=== PATIENT | female | born 1965 | race Caucasian/White ===

== ENCOUNTER 2018-12-01 19:50 | Inpatient (IN) | payer OTHER ==
--- NOTE | 2018-12-01 20:52 | RAD REPORT ---
EXAM DESCRIPTION: CT - Stone Protocol - 12/01/2018 8:42 pm CLINICAL HISTORY: Flank pain. FLANK PAIN COMPARISON: No comparisons TECHNIQUE: Axial images were obtained without oral or IV contrast. Lack of contrast limits solid org an and vascular assessment. The [id number] spans the entirety of the system partially obscuring uppermost abdomen and lung bases. Coronal reformatted images were obtained and reviewed. All CT scans are performed using dose optimization technique as appropriate and may include automated exposure control or mA/KV adjustment according to patient size. FINDINGS: The lower lung quinteros are clear. Cholecystectomy clips. Imaged portions of the liver and spleen show no suspicious findings on non-contrast imaging. The panc reas and adrenal glands are normal. No pathologic lymphadenopathy in the abdomen or pelvis. No urinary tract stones or obstructive uropathy. The right kidney appears enlarged and edematous comp ared to the left. Fat stranding is seen surrounding the inferior aspect of the right kidney. Prominen t 14 mm aortocaval lymph node is present. No bowel obstruction, free air, free fluid or abscess. The appendix is not identified as a discrete s tructure, however, no secondary findings of appendicitis are identified. No significant bony abnormality. Vacuum disc degeneration at L5-S1. IMPRESSION: No urinary tract stones or obstructive uropathy. Enlarged and edematous right kidney is seen with surrounding perinephric inflammation. Although nonsp ecific finding, this can indicate pyelonephritis in the correct clinical setting. Advise clinical cor relation. Cholelithiasis.
[2018-12-01 20:54] LABS: Urine Blood 2+ (NEG); Urine Glucose 2+ (NEG); Urine Protein 3+ (NEG); Urine Specific Gravity 1.025 (1.005-1.030)
[2018-12-01 20:55] LABS: Urine Amorphous Sediment 2+ /HPF (NONE SEEN); Urine Bacteria 20-50 /HPF (<20); Urine Culture Reflex Order NOT NEEDED; Urine Mucus 2+ /HPF (NONE SEEN)
[2018-12-01] MEDS ORDERED: FENTANYL CITR 100 MCG/2 ML ONE (20:55)
[2018-12-01] MEDS ORDERED: NA CHLORIDE 0.9% 1,000 ML ONE (21:22)
[2018-12-01] MEDS ORDERED: CIPROFLOXACIN 400mg IV 400 MG/200 ML BAG IV ONE (21:22)
[2018-12-01 21:48] LABS: Absolute Lymphocytes (CBC) 3.9 K/uL (0.7-4.9); Absolute Monocytes 2.2 K/uL (0.1-1.3); Absolute Neutrophil 10.1 K/uL (1.8-8.0); Basophils % 1.1 % (0-1.3); Eosinophils % 0.6 % (0-4.4); Hematocrit 39.2 % (36.0-45.0); Lymphocytes % 23.8 % (15.3-44.8); MPV 9.5 fL (7.6-11.3); Monocytes % 13.3 % (3.3-12.3)
--- NOTE | 2018-12-01 22:02 | EDPHYS ---
Physician Documentation [facility] Name: Mee Valentine Age: 53 yrs Sex: Female : 1965 Arrival Date: 12/01/2018 Time: 19:58 Bed 18 Private MD: Shara Dockery ED Physician Corbin Jacobo HPI: 12/01 21:13 This 53 yrs old Female presents to ER via Ambulatory with complaints of side snw pain. 21:13 Onset: The symptoms/episode began/occurred acutely. Associated signs and symptoms: snw Pertinent positives: abdominal pain, nausea. The patient has experienced similar episodes in the past, when pt was each time. The patient has been recently seen by a physician: the patient's primary care provider, 2 day(s) ago, with similar presenting complaints, and apparently given a diagnosis of UTI, was given a prescription for antibiotics. 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 - Social history:: Smoking status: Patient uses tobacco products, smokes one pack cigarettes per day. - Ebola Screening: : Patient negative for fever greater than or equal to 101.5 degrees Fahrenheit, and additional compatible Ebola Virus Disease symptoms Patient denies exposure to infectious person Patient denies travel to an Ebola-affected area in the 21 days before illness onset No symptoms or risks identified at this time. ROS: 21:10 Constitutional: Negative for fever, chills, and weight loss, Eyes: Negative for injury, snw pain, redness, and discharge, ENT: Negative for injury, pain, and discharge, Neck: Negative for injury, pain, and swelling, Cardiovascular: Negative for chest pain, palpitations, and edema, Respiratory: Negative for shortness of breath, cough, wheezing, and pleuritic chest pain, Back: Negative for injury and pain, MS/Extremity: Negative for injury and deformity, Skin: Negative for injury, rash, and discoloration, Neuro: Negative for headache, weakness, numbness, tingling, and seizure. 21:10 Psych: Negative for depression, anxiety, suicide ideation, homicidal ideation, and hallucinations. 21:10 Abdomen/GI: Positive for abdominal pain, nausea. Exam: 21:10 Constitutional: This is a well developed, well nourished patient who is awake, alert, snw and in no acute distress. Head/Face: Normocephalic, atraumatic. Eyes: Pupils equal round and reactive to light, extra-ocular motions intact. Lids and lashes normal. Conjunctiva and sclera are non-icteric and not injected. Cornea within normal limits. Periorbital areas with no swelling, redness, or edema. ENT: Nares patent. No nasal discharge, no septal abnormalities noted. Tympanic membranes are normal and external auditory canals are clear. Oropharynx with no redness, swelling, or masses, exudates, or evidence of obstruction, uvula midline. Mucous membranes moist. Neck: Trachea midline, no thyromegaly or masses palpated, and no cervical lymphadenopathy. Supple, full range of motion without nuchal rigidity, or vertebral point tenderness. No Meningismus. Chest/axilla: Normal chest wall appearance and motion. Nontender with no deformity. No lesions are appreciated. Cardiovascular: Regular rate and rhythm with a normal S1 and S2. No gallops, murmurs, or rubs. Normal PMI, no JVD. No pulse deficits. Respiratory: Lungs have equal breath sounds bilaterally, clear to auscultation and percussion. No rales, rhonchi or wheezes noted. No increased work of breathing, no retractions or nasal flaring. Back: No spinal tenderness. No costovertebral tenderness. Full range of motion. 21:10 Skin: Warm, dry with normal turgor. Normal color with no rashes, no lesions, and no evidence of cellulitis. MS/ Extremity: Pulses equal, no cyanosis. Neurovascular intact. Full, normal range of motion. Neuro: Awake and alert, GCS 15, oriented to person, place, time, and situation. Cranial nerves II-XII grossly intact. Motor strength 5/5 in all extremities. Sensory grossly intact. Cerebellar exam normal. Normal gait. 21:10 Abdomen/GI: Inspection: abdomen appears normal, Bowel sounds: normal, Palpation: moderate abdominal tenderness, in the posterior aspect of right lateral abdomen and right upper quadrant. Vital Signs: 20:00 BP 125 / 54; Pulse 100; Resp 20; Temp 97.4; Pulse Ox 95% on R/A; Weight 61.69 kg; aj Height 5 ft. 0 in. (152.40 cm); 21:00 BP 107 / 55; Pulse 89; Resp 19; Temp 98; Pulse Ox 98% ; Pain 10/10; rr5 22:00 BP 100 / 59; Pulse 82; Resp 17; Pulse Ox 98% on R/A; Pain 8/10; rr5 23:00 BP 103 / 53; Pulse 86; Resp 15; Temp 98.1; Pulse Ox 98% on R/A; Pain 7/10; rr5 12/02 00:00 BP 105 / 70; Pulse 95; Resp 17; Temp 99.2; Pulse Ox 99% on R/A; rr5 01:15 BP 104 / 45; Pulse 85; Resp 16; Temp 98.3; Pulse Ox 97% on R/A; Pain 7/10; rr5 12/01 20:00 Body Mass Index 26.56 (61.69 kg, 152.40 cm) aj MDM: 12/01 20:26 Patient medically screened. snw 21:14 Data reviewed: vital signs, nurses notes. Data interpreted: Pulse oximetry: on room air snw is 95 %. Interpretation: acceptable. Counseling: I had a detailed discussion with the patient and/or guardian regarding: the historical points, exam findings, and any diagnostic results supporting the discharge/admit diagnosis, lab results, radiology results, the need for further work-up and treatment in the hospital. Response to treatment: the patient's symptoms have mildly improved after treatment. Physician consultation: Letha Salinas MD was called at 21:14, was contacted at 21:14, regarding admission, to the medical/surgical unit. 21:15 ED course: Pt is diabetic, right kidney edematous on CT, has had outpt therapy for UTI snw x 2 days with no improvement, failed outpt therapy with Cipro. Pt allergic to PCN and Bactrim. Diabetic state with tachycardia at 100bpm. 12/01 20:31 Order name: Urine Culture snw 12/01 20:31 Order name: Urine Microscopic Only; Complete Time: 20:56 snw 12/01 20:40 Order name: Urine Dipstick--Ancillary (enter results); Complete Time: 20:55 cm6 12/01 20:57 Order name: Basic Metabolic Panel; Complete Time: 22:13 snw 12/01 20:57 Order name: CBC with Diff; Complete Time: 21:59 snw 12/01 20:57 Order name: Blood Culture Adult (2) snw 12/01 20:31 Order name: Urine Dipstick-Ancillary (obtain specimen); Complete Time: 20:40 snw 12/01 20:31 Order name: CT Stone Protocol; Complete Time: 20:55 snw 12/01 20:57 Order name: IV Saline Lock; Complete Time: 21:37 snw 12/01 22:38 Order name: Lactate; Complete Time: 00:00 EDMS 12/01 20:57 Order name: Labs collected and sent; Complete Time: 21:37 snw Administered Medications: 20:52 Drug: fentaNYL (PF) 50 mcg Route: IM; Site: right gluteus; rr5 22:00 Follow up: Response: No adverse reaction rr5 21:25 Drug: NS 0.9% 1000 ml Route: IV; Rate: 75 ml/hr; Site: left forearm; rr5 12/02 01:29 Follow up: IV Status: Infusion continued upon admission rr5 01:30 Follow up: IV Status: Infusion continued upon admission; IV Intake: 300ml rr5 12/01 21:25 Drug: Ciprofloxacin 400 mg Volume: 200 ml; Route: IVPB; Infused Over: 60 mins; Site: rr5 left forearm; 22:30 Follow up: Response: No adverse reaction; IV Status: Completed infusion; IV Intake: rr5 200ml 23:00 Drug: UltRAM 50 mg Route: PO; rr5 12/02 00:00 Follow up: Response: No adverse reaction rr5 Disposition: 04:28 Co-signature as Attending Physician, Corbin Jacobo MD. rn Disposition: 12/01/18 22:01 Hospitalization ordered by Letha Salinas for Inpatient Admission. Preliminary diagnosis are Pyelonephritis with failed outpatient therapy, Diabetes mellitus due to underlying condition. - Bed requested for Telemetry/MedSurg (Inpatient). - Status is Inpatient Admission. rr5 - Condition is Stable. - Problem is an ongoing problem. - Symptoms have worsened. UTI on Admission? Yes Signatures: Dispatcher [employer] Juana Gutiérrez RN RN Ginna Eubanks, STOCK BROKER SUPERVISOR-C STOCK BROKER SUPERVISOR-Csnw Corbin Jacobo MD MD rn Garcia, Cindy, RN RN cg Jose L Recinos RN RN rr5 Corrections: (The following items were deleted from the chart) 00:59 12/01 22:01 Hospitalization Ordered by Letha Salinas MD for Inpatient Admission. cg Preliminary diagnosis is Pyelonephritis with failed outpatient therapy; Diabetes mellitus due to underlying condition. Bed requested for Telemetry/MedSurg (Inpatient). Status is Inpatient Admission. Condition is Stable. Problem is an ongoing problem. Symptoms have worsened. UTI on Admission? Yes. [facility] 12/02 01:35 00:59 12/01/2018 22:01 Hospitalization Ordered by Letha Salinas MD for Inpatient rr5 Admission. Preliminary diagnosis is Pyelonephritis with failed outpatient therapy; Diabetes mellitus due to underlying condition. Bed requested for Telemetry/MedSurg (Inpatient). Status is Inpatient Admission. Condition is Stable. Problem is an ongoing problem. Symptoms have worsened. UTI on Admission? Yes.
--- NOTE | 2018-12-01 22:02 | ER ---
Nurse's Notes [facility] Name: Mee Valentine Age: 53 yrs Sex: Female : 1965 Arrival Date: 12/01/2018 Time: 19:58 Bed 18 Private MD: Shara Dockery Diagnosis: Pyelonephritis with failed outpatient therapy;Diabetes mellitus due to underlying condition Presentation: 12/01 19:58 Presenting complaint: Patient states: Right flank pain since Wednesday. Seen at [facility] clinic and told to follow up with GI. Found "large amount of blood in my urine.". Transition of care: patient was not received from another setting of care. Onset of symptoms was November 27, 2018. Risk Assessment: Do you want to hurt yourself or someone else? Patient reports no desire to harm self or others. Initial Sepsis Screen: Does the patient meet any 2 criteria? No. Patient's initial sepsis screen is negative. Does the patient have a suspected source of infection? No. Patient's initial sepsis screen is negative. Care prior to arrival: None. 19:58 Method Of Arrival: Ambulatory 19:58 Acuity: ROSAURA 3 Triage Assessment: 20:00 General: Appears in no apparent distress. comfortable, Behavior is calm, cooperative, aj appropriate for age. Pain: Complains of pain in posterior aspect of right lateral abdomen and anterior aspect of right lateral abdomen. Neuro: Level of Consciousness is awake, alert, obeys commands, Oriented to person, place, time, situation, Appropriate for age. Respiratory: Airway is patent Respiratory effort is even, unlabored, Respiratory pattern is regular, symmetrical. : Reports pain in right flank(s). Derm: Skin is intact, is healthy with good turgor, Skin is pink, warm \\T\\ dry. normal. 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 - Social history:: Smoking status: Patient uses tobacco products, smokes one pack cigarettes per day. - Ebola Screening: : Patient negative for fever greater than or equal to 101.5 degrees Fahrenheit, and additional compatible Ebola Virus Disease symptoms Patient denies exposure to infectious person Patient denies travel to an Ebola-affected area in the 21 days before illness onset No symptoms or risks identified at this time. Screenin:00 Abuse screen: Denies threats or abuse. Denies injuries from another. Nutritional rr5 screening: No deficits noted. Tuberculosis screening: No symptoms or risk factors identified. Fall Risk IV access (20 points). Total Fischer Fall Scale indicates No Risk (0-24 pts). Assessment: 20:10 General: Appears in no apparent distress. uncomfortable, Behavior is calm, cooperative, rr5 appropriate for age. Pain: Complains of pain in right flank Pain radiates to right lower quadrant Pain currently is 8 out of 10 on a pain scale. Quality of pain is described as aching, Pain began gradually, Is intermittent. 20:10 Neuro: Level of Consciousness is awake, alert, obeys commands, Oriented to person, rr5 place, time, situation, Appropriate for age. Cardiovascular: Capillary refill < 3 seconds Patient's skin is warm and dry. Respiratory: Airway is patent Respiratory effort is even, unlabored, Respiratory pattern is regular, symmetrical. GI: Abdomen is flat, Reports lower abdominal pain. : Urine is orange Reports diagnosed with UTI. complaining of right flank pain. EENT: hearing aid at left ear noted. Derm: No signs and/or symptoms reported regarding the dermatologic system. Musculoskeletal: Capillary refill < 3 seconds, Range of motion: intact in all extremities. 21:15 Reassessment: Patient appears in no apparent distress at this time. Patient and/or rr5 family updated on plan of care and expected duration. Pain level reassessed. Patient is alert, oriented x 3, equal unlabored respirations, skin warm/dry/pink. patient agreed advised for admission. 23:00 Reassessment: Patient appears in no apparent distress at this time. complaints of flank rr5 pain, 02/11. dr. guerra informed with order made and carried out. 12/02 00:10 Reassessment: Patient appears in no apparent distress at this time. Patient states rr5 feeling better. Patient states symptoms have improved. 01:15 Reassessment: Patient appears in no apparent distress at this time. Patient is alert, rr5 oriented x 3, equal unlabored respirations, skin warm/dry/pink. as verbalized by the patient i feel better now. pain is on and off around 7/10 but i feel okay. Patient states feeling better. Patient states symptoms have improved. Vital Signs: 12/01 20:00 BP 125 / 54; Pulse 100; Resp 20; Temp 97.4; Pulse Ox 95% on R/A; Weight 61.69 kg; aj Height 5 ft. 0 in. (152.40 cm); 21:00 BP 107 / 55; Pulse 89; Resp 19; Temp 98; Pulse Ox 98% ; Pain 10/10; rr5 22:00 BP 100 / 59; Pulse 82; Resp 17; Pulse Ox 98% on R/A; Pain 8/10; rr5 23:00 BP 103 / 53; Pulse 86; Resp 15; Temp 98.1; Pulse Ox 98% on R/A; Pain 7/10; rr5 12/02 00:00 BP 105 / 70; Pulse 95; Resp 17; Temp 99.2; Pulse Ox 99% on R/A; rr5 01:15 BP 104 / 45; Pulse 85; Resp 16; Temp 98.3; Pulse Ox 97% on R/A; Pain 7/10; rr5 12/01 20:00 Body Mass Index 26.56 (61.69 kg, 152.40 cm) ED Course: 12/01 19:58 Patient arrived in ED. am2 19:58 Shara Dockery is Private Physician. am2 19:59 Triage completed. aj 20:00 Arm band placed on right wrist. Patient placed in an exam room. aj 20:00 Patient has correct armband on for positive identification. Placed in gown. Bed in low rr5 position. Call light in reach. Side rails up X2. Pulse ox on. NIBP on. 20:09 Ginna Parra FNP-C is PHCP. snw 20:09 Corbin Jacobo MD is Attending Physician. snw 20:10 Jose L Recinos RN is Primary Nurse. rr5 20:[address] via wheelchair. vm2 20:44 CT Stone Protocol In Process Unspecified. EDMS 21:10 Inserted saline lock: 20 gauge in left forearm, using aseptic technique. Blood rr5 collected. 21:10 Initial lab(s) drawn, by me, First set of blood cultures drawn by me. rr5 21:25 Second set of blood cultures drawn by me. rr5 21:59 Letha Salinas MD is Hospitalizing Provider. [facility] 12/02 01:18 No provider procedures requiring assistance completed. Patient admitted, IV remains in rr5 place. intact, No redness/swelling at site. Administered Medications: 12/01 20:52 Drug: fentaNYL (PF) 50 mcg Route: IM; Site: right gluteus; rr5 22:00 Follow up: Response: No adverse reaction rr5 21:25 Drug: NS 0.9% 1000 ml Route: IV; Rate: 75 ml/hr; Site: left forearm; rr5 12/02 01:29 Follow up: IV Status: Infusion continued upon admission rr5 01:30 Follow up: IV Status: Infusion continued upon admission; IV Intake: 300ml rr5 12/01 21:25 Drug: Ciprofloxacin 400 mg Volume: 200 ml; Route: IVPB; Infused Over: 60 mins; Site: rr5 left forearm; 22:30 Follow up: Response: No adverse reaction; IV Status: Completed infusion; IV Intake: rr5 200ml 23:00 Drug: UltRAM 50 mg Route: PO; rr5 12/02 00:00 Follow up: Response: No adverse reaction rr5 Intake: 12/01 22:30 IV: 200ml; Total: 200ml. rr5 12/02 01:30 IV: 300ml; Total: 500ml. rr5 Outcome: 12/01 22:01 Decision to Hospitalize by Provider. [facility] 12/02 01:18 Admitted to Tele accompanied by [facility], via wheelchair, room 414, with chart, Report rr5 called to azam Condition: stable Instructed on the need for admit. 01:35 Patient left the ED. rr5 Signatures: Dispatcher [employer] Juana Gutiérrez, RN RN Ginna Eubanks FNP-C FNP-Juana Quinones Victoria vm2 Roque, Raymond, RN RN rr5
[2018-12-01 22:07] LABS: Potassium 3.6 mmol/L (3.5-5.1)
--- NOTE | 2018-12-01 22:52 | P.HP ---
Certification for Inpatient Patient admitted to: Inpatient With expected LOS: >2 Midnights Practitioner: I am a practitioner with admitting privileges, knowledge of patient current condition, hospital course, and medical plan of care. Services: Services provided to patient in accordance with Admission requirements found in Title 42 Section 412.3 of the Code of Federal Regulations Patient History Date of Service: 12/01/18 Reason for admission: acute pyelonephritis History of Present Illness: Ms Valentine is a 53 years old woman with history of DM II, HTN, deafness, who start with right flank pain about about 6 days ago. She went to [facility] and was diagnosed with UTI. She was prescribed Cipro. Despite to take the antibiotics, her flank pain continue without improvement. She denied fever or chills, no nausea or vomiting. In ER she was afebrile, tachycardic 100 bpm, lab work shows leukocytosis 16.4K, UA abnormal, CT abd/pelvis consistent with right pyelonephritis. Allergies Penicillins Allergy (Unverified 07/30/17 21:08) Unknown Sulfa (Sulfonamide Antibi Allergy (Uncoded 07/30/17 21:08) Unknown Home medications list reviewed: Yes - Past Medical/Surgical History -: DM II -: HTN -: deafness Past Surgical History: Reviewed- Non-Contributory - Family History Family History: Reviewed- Non-Contributory - Social History Smoking Status: Current every day smoker Counseled patient to stop smoking for: less than 10 minutes Smoking therapy provided: Yes Patient receptive to therapy: No Alcohol use: No CD- Drugs: No Place of Residence: Home Review of Systems 10-point ROS is otherwise unremarkable Physical Examination - Physical Exam General: Alert, In no apparent distress HEENT: Atraumatic, PERRLA, Mucous membr. moist/pink, EOMI, Sclerae nonicteric Neck: Supple, 2+ carotid pulse no bruit, No LAD, Without JVD or thyroid abnormality Respiratory: Clear to auscultation bilaterally, Normal air movement Cardiovascular: Regular rate/rhythm, Normal S1 S2 Gastrointestinal: Normal bowel sounds, Tenderness (right flank tenderness to palpation) Musculoskeletal: No tenderness Integumentary: No rashes Neurological: Normal speech, Normal strength at 5/5 x4 extr, Normal tone, Normal affect Lymphatics: No axilla or inguinal lymphadenopathy - Studies Laboratory Data (last 24 hrs) 12/01/18 21:10: WBC 16.4 H, Hgb 12.9, Hct 39.2, Plt Count 358 12/01/18 21:10: Sodium 136, Potassium 3.6, BUN 12, Creatinine 0.80, Glucose 202 H Assessment and Plan - Problems (Diagnosis) (1) Acute pyelonephritis Current Visit: Yes Status: Acute (2) Diabetes mellitus Current Visit: Yes Status: Acute Qualifiers: Diabetes mellitus type: type 2 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 Blood and urine culture in process , will order empiric treatment with IV Levaquin. Will adjust antibiotic treatment according cultures report. - Advance Directives Does patient have a Living Will: No Does patient have a Durable POA for Healthcare: No - Code Status/Comfort Care Code Status Assessed: Yes Code Status: Full Code
[2018-12-01] MEDS ORDERED: TRAMADOL HCL 50 MG TAB ONE (23:06)
[2018-12-02] MEDS ORDERED: ONDANSETRON 4 MG/2 ML VIAL IV PRN (03:00)
[2018-12-02] MEDS: TRAMADOL HCL 50 MG TAB PO PRN ×3 (04:13→20:39)
[2018-12-02] MEDS: Levofloxacin500mg IV 500 MG/100 ML BAG IV SCH (04:13)
[2018-12-02] MEDS: NA CHLORIDE 0.9% 1,000 ML IV SCH ×3 (04:14→17:21)
[2018-12-02] MEDS: INSULIN -REGULAR HUMAN 50 UNIT/0.5 ML ML SQ SCH ×4 (07:30→21:00)
[2018-12-02] MEDS ORDERED: POTASSIUM CL SA 10 MEQ TAB PO ONE (09:00)
--- NOTE | 2018-12-02 13:21 | P.PN ---
Subjective Date of Service: 12/02/18 Chief Complaint: acute pyelonephritis Subjective: Improving (Patient seen and examined chart reviewed and case discussed with RN. Patient states she feels better. Still having some flank pain.) Review of Systems 10-point ROS is otherwise unremarkable Genitourinary: As per HPI Physical Examination - Vital Signs Temperature: 97.3 F Blood Pressure: 111/50 Pulse: 84 Respirations: 24 Pulse Ox (%): 94 - Physical Exam General: Alert, Oriented x3, Mild distress, Other (Ill-appearing female) HEENT: Atraumatic, PERRLA, EOMI Neck: Supple, JVD not distended Respiratory: Clear to auscultation bilaterally, Normal air movement Cardiovascular: No edema, Normal pulses, Regular rate/rhythm, Normal S1 S2 Gastrointestinal: Normal bowel sounds, Soft and benign, Non-distended, No tenderness Musculoskeletal: No clubbing, No tenderness Integumentary: No rashes, No erythema Neurological: Normal speech, Normal strength at 5/5 x4 extr, Normal tone, Normal affect - Studies Laboratory Data (last 24 hrs) 12/01/18 21:10: WBC 16.4 H, Hgb 12.9, Hct 39.2, Plt Count 358 12/01/18 21:10: Sodium 136, Potassium 3.6, BUN 12, Creatinine 0.80, Glucose 202 H Imagings Data: IMPRESSION: No urinary tract stones or obstructive uropathy. Enlarged and edematous right kidney is seen with surrounding perinephric inflammation. Although nonspecific finding, this can indicate pyelonephritis in the correct clinical setting. Advise clinical correlation. Cholelithiasis. 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 Patient is still symptomatic with flank pain as high white count. Resume home medications as appropriate Monitor for signs of sepsis DVT prophylaxis with Lovenox Continue IV fluid hydration Discharge Plan: Home Plan to discharge in: 48 Hours - Code Status/Comfort Care Code Status Assessed: Yes
[2018-12-02] MEDS ORDERED: D50W 25 GM/50 ML SYRINGE IV PRN (13:28)
[2018-12-02] MEDS ORDERED: GLUCAGON 1 MG/VIAL IM PRN (13:28)
[2018-12-02] MEDS: HYDROCODONE/APAP 7.5/325 MG TAB PO PRN ×2 (16:20→21:58)
[2018-12-02] MEDS: glipiZIDE 5 MG TAB PO SCH (17:23)
[2018-12-02] MEDS: ATORVASTATIN 40 MG TAB PO SCH (20:39)
[2018-12-02] MEDS: DICYCLOMINE HCL 10 MG CAP PO PRN (20:40)
[2018-12-03] MEDS: Levofloxacin500mg IV 500 MG/100 ML BAG IV SCH (04:43)
[2018-12-03] MEDS: NA CHLORIDE 0.9% 1,000 ML IV SCH ×3 (04:44→16:12)
[2018-12-03] MEDS: HYDROCODONE/APAP 7.5/325 MG TAB PO PRN ×4 (04:44→23:57)
[2018-12-03] MEDS: INSULIN -REGULAR HUMAN 50 UNIT/0.5 ML ML SQ SCH ×4 (07:30→21:00)
[2018-12-03] MEDS: LISINOPRIL 5 MG TAB PO SCH (09:14)
[2018-12-03] MEDS: glipiZIDE 5 MG TAB PO SCH ×2 (09:14→16:12)
[2018-12-03 10:55] LABS: Absolute Monocytes 1.2 K/uL (0.1-1.3); Absolute Neutrophil 11.1 K/uL (1.8-8.0); Basophils % 1.1 % (0-1.3); Eosinophils % 1.4 % (0-4.4); Hematocrit 35.2 % (36.0-45.0); Lymphocytes % 19.3 % (15.3-44.8); MPV 8.9 fL (7.6-11.3); Monocytes % 7.4 % (3.3-12.3); RBC Red Blood Cell Count 3.89 M/uL (3.86-4.86)
--- NOTE | 2018-12-03 12:44 | P.PN ---
Subjective Date of Service: 12/03/18 Chief Complaint: acute pyelonephritis Subjective: Improving Patient seen and examined chart reviewed and case discussed with RN. Patient reports improvement in her pain however still not resolved. Patient counseled to stop smoking however she is adamant About going outside to smoke Review of Systems 10-point ROS is otherwise unremarkable Gastrointestinal: As per HPI Physical Examination - Vital Signs Temperature: 96.9 F Blood Pressure: 112/60 Pulse: 78 Respirations: 18 Pulse Ox (%): 96 - Physical Exam General: Alert, In no apparent distress, Oriented x3 HEENT: Atraumatic, PERRLA, EOMI Neck: Supple, JVD not distended Respiratory: Clear to auscultation bilaterally, Normal air movement Cardiovascular: No edema, Normal pulses, Regular rate/rhythm, Normal S1 S2 Gastrointestinal: Normal bowel sounds, Soft and benign, Non-distended, No rebound, No guarding, Tenderness Musculoskeletal: No tenderness Integumentary: No rashes Neurological: Normal speech, Normal strength at 5/5 x4 extr, Normal tone, Normal affect - Studies Laboratory Tests 12/01/18 12/01/18 12/01/18 20:10 20:40 21:10 WBC RBC Hgb Hct MCV MCH MCHC RDW Plt Count MPV Neutrophils % Lymphocytes % Monocytes % Eosinophils % Basophils % Absolute Neutrophils Absolute Lymphocytes Absolute Monocytes Absolute Eosinophils Absolute Basophils Sodium 136 Potassium 3.6 Chloride 105 Carbon Dioxide 24 BUN 12 Creatinine 0.80 Estimated GFR 76 L Glucose 202 H Lactic Acid Calcium 9.1 Urine pH 5.0 Ur Specific [place] 1.025 Urine Ketones Trace Urine Blood 2+ H Urine Nitrite Negative Ur Leukocyte Esterase Trace H Urine RBC 10-20 H Urine WBC 20-50 H Ur Squamous Epith Cells <5 Amorphous Sediment 2+ H Urine Bacteria 20-50 H Urine Mucus 2+ Urine Culture Reflexed Not needed Urine Glucose 2+ H Urine Total Protein 3+ H 12/01/18 12/01/18 21:10 23:20 WBC 16.4 H RBC 4.30 Hgb 12.9 Hct 39.2 MCV 91.1 MCH 30.1 MCHC 33.0 RDW 13.6 Plt Count 358 MPV 9.5 Neutrophils % 61.2 Lymphocytes % 23.8 Monocytes % 13.3 H Eosinophils % 0.6 Basophils % 1.1 Absolute Neutrophils 10.1 H Absolute Lymphocytes 3.9 Absolute Monocytes 2.2 H Absolute Eosinophils 0.1 Absolute Basophils 0.2 Sodium Potassium Chloride Carbon Dioxide BUN Creatinine Estimated GFR Glucose Lactic Acid 1.5 Calcium Urine pH Ur Specific [place] Urine Ketones Urine Blood Urine Nitrite Ur Leukocyte Esterase Urine RBC Urine WBC Ur Squamous Epith Cells Amorphous Sediment Urine Bacteria Urine Mucus Urine Culture Reflexed Urine Glucose Urine Total Protein Microbiology Data (last 24 hrs): Microbiology 12/01/18 20:10 Clean Catch Urine [place] Count - Preliminary <10,000 CFU/ML. 12/01/18 20:10 Clean Catch Urine - Preliminary No growth. 12/01/18 21:25 Blood - Blood Aerobic Blood Culture - Preliminary No growth in 24 hours. 12/01/18 21:25 Blood - Blood Anaerobic Blood Culture - Preliminary No growth in 24 hours. 12/01/18 21:10 Blood - Blood Aerobic Blood Culture - Preliminary No growth in 24 hours. 12/01/18 21:10 Blood - Blood Anaerobic Blood Culture - Preliminary No growth in 24 hours. Medications List Reviewed: Yes Assessment And Plan - Current Problems (Diagnosis) (1) Acute pyelonephritis Current Visit: Yes Status: Acute (2) Diabetes mellitus Current Visit: Yes Status: Acute Qualifiers: Diabetes mellitus type: type 2 Diabetes mellitus residential insulin use: without computer terminal operator use Diabetes mellitus complication status: with hyperglycemia Qualified Code(s): E11.65 - Type 2 diabetes mellitus with hyperglycemia (3) HTN (hypertension) Current Visit: Yes Status: Acute Qualifiers: Hypertension type: essential hypertension Qualified Code(s): I10 - Essential (primary) hypertension (4) Leukocytosis Current Visit: Yes Status: Acute Qualifiers: Leukocytosis type: other Qualified Code(s): D72.828 - Other elevated white blood cell count (5) Nicotine dependence with current use Current Visit: Yes Status: Acute - Plan CBC still shows elevated white blood cell count. Patient still has abdominal tenderness and nausea. Continue IV antibiotics and follow up on cultures. Negative to date. CT scan does not show any obstruction or stones. Right perinephric stranding consistent with pyelonephritis Monitor for signs of sepsis DVT prophylaxis with Lovenox Continue IV fluid hydration Discharge Plan: Home Plan to discharge in: 24 Hours
[2018-12-03] MEDS: ATORVASTATIN 40 MG TAB PO SCH (21:08)
[2018-12-03] MEDS: TRAMADOL HCL 50 MG TAB PO PRN (21:08)
[2018-12-03] MEDS: DICYCLOMINE HCL 10 MG CAP PO PRN (21:08)
[2018-12-04] MEDS: Levofloxacin500mg IV 500 MG/100 ML BAG IV SCH (04:25)
[2018-12-04] MEDS: NA CHLORIDE 0.9% 1,000 ML IV SCH ×2 (04:25→15:00)
[2018-12-04 05:32] LABS: Absolute Lymphocytes (CBC) 3.9 K/uL (0.7-4.9); Absolute Monocytes 1.2 K/uL (0.1-1.3); Absolute Neutrophil 8.6 K/uL (1.8-8.0); Basophils % 0.6 % (0-1.3); Eosinophils % 2.4 % (0-4.4); Hematocrit 32.6 % (36.0-45.0); Lymphocytes % 27.5 % (15.3-44.8); Monocytes % 8.2 % (3.3-12.3); RBC Red Blood Cell Count 3.56 M/uL (3.86-4.86)
[2018-12-04 05:43] LABS: BUN Blood Urea Nitrogen 10 mg/dL (7-18); Bicarbonate 26 mmol/L (21-32); Glucose Level 125 mg/dL (74-106); Sodium Level 141 mmol/L (136-145)
[2018-12-04] MEDS: INSULIN -REGULAR HUMAN 50 UNIT/0.5 ML ML SQ SCH ×4 (07:30→20:28)
[2018-12-04] MEDS: LISINOPRIL 5 MG TAB PO SCH (09:16)
[2018-12-04] MEDS: glipiZIDE 5 MG TAB PO SCH ×2 (09:16→17:25)
[2018-12-04] MEDS: HYDROCODONE/APAP 7.5/325 MG TAB PO PRN ×2 (10:41→20:08)
--- NOTE | 2018-12-04 13:32 | P.PN ---
Subjective Date of Service: 12/04/18 Chief Complaint: acute pyelonephritis Patient seen and examined chart reviewed and case discussed with RN. New acute events overnight. Patient still reports with the right flank pain Review of Systems 10-point ROS is otherwise unremarkable Physical Examination - Vital Signs Temperature: 97.2 F Blood Pressure: 127/56 Pulse: 79 Respirations: 16 Pulse Ox (%): 98 - Physical Exam General: Alert, In no apparent distress, Oriented x3 HEENT: Atraumatic, PERRLA, EOMI Neck: Supple, JVD not distended Respiratory: Clear to auscultation bilaterally, Normal air movement Cardiovascular: No edema, Normal pulses, Regular rate/rhythm, Normal S1 S2 Gastrointestinal: Normal bowel sounds, Soft and benign, Non-distended, No tenderness, Other (Right flank tenderness) Musculoskeletal: No erythema Integumentary: No rashes Neurological: Normal speech, Normal tone, Normal affect - Studies Laboratory Last Values WBC 14.0 K/uL (4.3-10.9) H 12/04/18 05:00 RBC 3.56 M/uL (3.86-4.86) L 12/04/18 05:00 Hgb 10.9 g/dL (12.0-15.0) L 12/04/18 05:00 Hct 32.6 % (36.0-45.0) L 12/04/18 05:00 MCV 91.5 fL (80-100) 12/04/18 05:00 MCH 30.6 pg (27.0-35.0) 12/04/18 05:00 MCHC 33.4 g/dL (32.0-36.0) 12/04/18 05:00 RDW 13.4 % (12.1-15.2) 12/04/18 05:00 Plt Count 402 K/uL (152-406) 12/04/18 05:00 MPV 9.0 fL (7.6-11.3) 12/04/18 05:00 Neutrophils % 61.3 % (41.7-73.7) 12/04/18 05:00 Lymphocytes % 27.5 % (15.3-44.8) 12/04/18 05:00 Monocytes % 8.2 % (3.3-12.3) 12/04/18 05:00 Eosinophils % 2.4 % (0-4.4) 12/04/18 05:00 Basophils % 0.6 % (0-1.3) 12/04/18 05:00 Absolute Neutrophils 8.6 K/uL (1.8-8.0) H 12/04/18 05:00 Absolute Lymphocytes 3.9 K/uL (0.7-4.9) 12/04/18 05:00 Absolute Monocytes 1.2 K/uL (0.1-1.3) 12/04/18 05:00 Absolute Eosinophils 0.3 K/uL (0-0.5) 12/04/18 05:00 Absolute Basophils 0.1 K/uL (0-0.5) 12/04/18 05:00 Sodium 141 mmol/L (136-145) 12/04/18 05:00 Potassium 4.0 mmol/L (3.5-5.1) 12/04/18 05:00 Chloride 110 mmol/L (98-107) H 12/04/18 05:00 Carbon Dioxide 26 mmol/L (21-32) 12/04/18 05:00 BUN 10 mg/dL (7-18) 12/04/18 05:00 Creatinine 0.53 mg/dL (0.55-1.3) L 12/04/18 05:00 Estimated GFR > 90 mL/min (=/>90) 12/04/18 05:00 Glucose 125 mg/dL (74-106) H 12/04/18 05:00 POC Glucose 180 mg/dl (65-120) H 12/04/18 11:46 Lactic Acid 1.5 mmol/L (0.4-2.0) 12/01/18 23:20 Calcium 8.7 mg/dL (8.5-10.1) 12/04/18 05:00 Urine pH 5.0 (5.0-7.0) 12/01/18 20:40 Ur Specific [place] 1.025 (1.005-1.030) 12/01/18 20:40 Urine Ketones Trace (NEG) 12/01/18 20:40 Urine Blood 2+ (NEG) H 12/01/18 20:40 Urine Nitrite Negative (NEG) 12/01/18 20:40 Ur Leukocyte Esterase Trace (NEG) H 12/01/18 20:40 Urine RBC 10-20 /HPF (NONE SEEN) H 12/01/18 20:10 Urine WBC 20-50 /HPF (<5) H 12/01/18 20:10 Ur Squamous Epith Cells <5 /HPF (NONE SEEN) 12/01/18 20:10 Amorphous Sediment 2+ /HPF (NONE SEEN) H 12/01/18 20:10 Urine Bacteria 20-50 /HPF (<20) H 12/01/18 20:10 Urine Mucus 2+ /HPF (NONE SEEN) 12/01/18 20:10 Urine Culture Reflexed Not needed 12/01/18 20:10 Urine Glucose 2+ (NEG) H 12/01/18 20:40 Urine Total Protein 3+ (NEG) H 12/01/18 20:40 Microbiology Data (last 24 hrs): 12/01/18 20:10 Clean Catch Urine [place] Count - Final 12/01/18 20:10 Clean Catch Urine - Final No growth. Medications List Reviewed: Yes Assessment And Plan - Current Problems (Diagnosis) (1) Acute pyelonephritis Current Visit: Yes Status: Acute (2) Diabetes mellitus Current Visit: Yes Status: Acute Qualifiers: Diabetes mellitus type: type 2 Diabetes mellitus chcf insulin use: without weight analyst use Diabetes mellitus complication status: with hyperglycemia Qualified Code(s): E11.65 - Type 2 diabetes mellitus with hyperglycemia (3) HTN (hypertension) Current Visit: Yes Status: Acute Qualifiers: Hypertension type: essential hypertension Qualified Code(s): I10 - Essential (primary) hypertension (4) Leukocytosis Current Visit: Yes Status: Acute Qualifiers: Leukocytosis type: other Qualified Code(s): D72.828 - Other elevated white blood cell count (5) Nicotine dependence with current use Current Visit: Yes Status: Acute - Plan CBC still shows elevated white blood cell count. Patient still has flank tenderness. Continue IV antibiotics and follow up on cultures. Negative to date. Patient was on antibiotics at home therefore culture has low yield. CT scan does not show any obstruction or stones. Right perinephric stranding consistent with pyelonephritis Monitor for signs of sepsis DVT prophylaxis with Lovenox Continue IV fluid hydration. Likely Dc in a.m.
[2018-12-04] MEDS: ATORVASTATIN 40 MG TAB PO SCH (20:08)
[2018-12-05] MEDS: NA CHLORIDE 0.9% 1,000 ML IV SCH ×3 (00:45→21:00)
[2018-12-05 04:44] LABS: Absolute Lymphocytes (CBC) 4.1 K/uL (0.7-4.9); Absolute Neutrophil 9.6 K/uL (1.8-8.0); Eosinophils % 1.3 % (0-4.4); Hematocrit 32.1 % (36.0-45.0); Lymphocytes % 27.2 % (15.3-44.8); MPV 9.1 fL (7.6-11.3); Monocytes % 6.8 % (3.3-12.3); RBC Red Blood Cell Count 3.53 M/uL (3.86-4.86)
[2018-12-05 04:45] LABS: BUN Blood Urea Nitrogen 8 mg/dL (7-18); Bicarbonate 25 mmol/L (21-32); Glucose Level 123 mg/dL (74-106); Potassium 3.9 mmol/L (3.5-5.1); Sodium Level 142 mmol/L (136-145)
[2018-12-05] MEDS: Levofloxacin500mg IV 500 MG/100 ML BAG IV SCH (04:55)
[2018-12-05] MEDS: INSULIN -REGULAR HUMAN 50 UNIT/0.5 ML ML SQ SCH ×4 (07:30→21:00)
[2018-12-05] MEDS: LISINOPRIL 5 MG TAB PO SCH (08:07)
[2018-12-05] MEDS: glipiZIDE 5 MG TAB PO SCH ×2 (08:08→16:32)
[2018-12-05] MEDS ORDERED: POTASSIUM 25 MEQ EFFERV TAB PO ONE (09:00)
[2018-12-05] MEDS ORDERED: CEFEPIME 2 GM in NA CHLORIDE 0.9% 100 ML IV SCH (09:09)
[2018-12-05] MEDS ORDERED: Meropenem 1,000 MG in NA CHLORIDE 0.9% 100 ML IV ONE (11:00)
--- NOTE | 2018-12-05 12:52 | P.PN ---
Subjective Date of Service: 12/05/18 Chief Complaint: acute pyelonephritis Subjective: Worsening Patient seen and examined chart reviewed and case discussed with RN and Dr. Mosley. No acute events overnight. Patient still reports pain in the right flank Review of Systems 10-point ROS is otherwise unremarkable General: Fever Physical Examination - Vital Signs Temperature: 97.1 F Blood Pressure: 137/64 Pulse: 81 Respirations: 18 Pulse Ox (%): 96 - Physical Exam General: Alert, In no apparent distress, Oriented x3, Mild distress, Other (Ill- appearing female) HEENT: Atraumatic, PERRLA, EOMI Neck: Supple, JVD not distended Respiratory: Clear to auscultation bilaterally, Normal air movement Cardiovascular: No edema, Normal pulses, Regular rate/rhythm, Normal S1 S2 Gastrointestinal: Normal bowel sounds, Soft and benign, Non-distended, Tenderness (Right flank tenderness) Musculoskeletal: No tenderness Integumentary: No rashes Neurological: Normal speech, Normal tone, Normal affect - Studies Laboratory Last Values WBC 15.1 K/uL (4.3-10.9) H 12/05/18 04:07 RBC 3.53 M/uL (3.86-4.86) L 12/05/18 04:07 Hgb 10.9 g/dL (12.0-15.0) L 12/05/18 04:07 Hct 32.1 % (36.0-45.0) L 12/05/18 04:07 MCV 90.8 fL (80-100) 12/05/18 04:07 MCH 30.8 pg (27.0-35.0) 12/05/18 04:07 MCHC 33.9 g/dL (32.0-36.0) 12/05/18 04:07 RDW 13.5 % (12.1-15.2) 12/05/18 04:07 Plt Count 459 K/uL (152-406) H 12/05/18 04:07 MPV 9.1 fL (7.6-11.3) 12/05/18 04:07 Neutrophils % 63.7 % (41.7-73.7) 12/05/18 04:07 Lymphocytes % 27.2 % (15.3-44.8) 12/05/18 04:07 Monocytes % 6.8 % (3.3-12.3) 12/05/18 04:07 Eosinophils % 1.3 % (0-4.4) 12/05/18 04:07 Basophils % 1.0 % (0-1.3) 12/05/18 04:07 Absolute Neutrophils 9.6 K/uL (1.8-8.0) H 12/05/18 04:07 Absolute Lymphocytes 4.1 K/uL (0.7-4.9) 12/05/18 04:07 Absolute Monocytes 1.0 K/uL (0.1-1.3) 12/05/18 04:07 Absolute Eosinophils 0.2 K/uL (0-0.5) 12/05/18 04:07 Absolute Basophils 0.2 K/uL (0-0.5) 12/05/18 04:07 Sodium 142 mmol/L (136-145) 12/05/18 04:07 Potassium 3.9 mmol/L (3.5-5.1) 12/05/18 04:07 Chloride 110 mmol/L (98-107) H 12/05/18 04:07 Carbon Dioxide 25 mmol/L (21-32) 12/05/18 04:07 BUN 8 mg/dL (7-18) 12/05/18 04:07 Creatinine 0.48 mg/dL (0.55-1.3) L 12/05/18 04:07 Estimated GFR > 90 mL/min (=/>90) 12/05/18 04:07 Glucose 123 mg/dL (74-106) H 12/05/18 04:07 POC Glucose 169 mg/dl (65-120) H 12/05/18 11:27 Lactic Acid 1.2 mmol/L (0.4-2.0) 12/05/18 09:30 Calcium 8.6 mg/dL (8.5-10.1) 12/05/18 04:07 Urine pH 5.0 (5.0-7.0) 12/01/18 20:40 Ur Specific [place] 1.025 (1.005-1.030) 12/01/18 20:40 Urine Ketones Trace (NEG) 12/01/18 20:40 Urine Blood 2+ (NEG) H 12/01/18 20:40 Urine Nitrite Negative (NEG) 12/01/18 20:40 Ur Leukocyte Esterase Trace (NEG) H 12/01/18 20:40 Urine RBC 10-20 /HPF (NONE SEEN) H 12/01/18 20:10 Urine WBC 20-50 /HPF (<5) H 12/01/18 20:10 Ur Squamous Epith Cells <5 /HPF (NONE SEEN) 12/01/18 20:10 Amorphous Sediment 2+ /HPF (NONE SEEN) H 12/01/18 20:10 Urine Bacteria 20-50 /HPF (<20) H 12/01/18 20:10 Urine Mucus 2+ /HPF (NONE SEEN) 12/01/18 20:10 Urine Culture Reflexed Not needed 12/01/18 20:10 Urine Glucose 2+ (NEG) H 12/01/18 20:40 Urine Total Protein 3+ (NEG) H 12/01/18 20:40 Microbiology Data (last 24 hrs): Microbiology 12/01/18 20:10 Clean Catch Urine [place] Count - Final 12/01/18 20:10 Clean Catch Urine - Final No growth. 12/01/18 21:25 Blood - Blood Aerobic Blood Culture - Preliminary No growth in 24 hours. 12/01/18 21:25 Blood - Blood Anaerobic Blood Culture - Preliminary No growth in 24 hours. 12/01/18 21:10 Blood - Blood Aerobic Blood Culture - Preliminary No growth in 24 hours. 12/01/18 21:10 Blood - Blood Anaerobic Blood Culture - Preliminary No growth in 24 hours. Medications List Reviewed: Yes Assessment And Plan - Current Problems (Diagnosis) (1) Acute pyelonephritis Current Visit: Yes Status: Acute (2) Diabetes mellitus Current Visit: Yes Status: Acute Qualifiers: Diabetes mellitus type: type 2 Diabetes mellitus mcfp insulin use: without ferry terminal supervisor use Diabetes mellitus complication status: with hyperglycemia Qualified Code(s): E11.65 - Type 2 diabetes mellitus with hyperglycemia (3) HTN (hypertension) Current Visit: Yes Status: Acute Qualifiers: Hypertension type: essential hypertension Qualified Code(s): I10 - Essential (primary) hypertension (4) Leukocytosis Current Visit: Yes Status: Acute Qualifiers: Leukocytosis type: other Qualified Code(s): D72.828 - Other elevated white blood cell count (5) Nicotine dependence with current use Current Visit: Yes Status: Acute - Plan white blood cell count trending up. Patient still has flank tenderness. Adjust IV antibiotics to meropenem and discontinue Levaquin and follow up on cultures. Negative to date. Patient was on antibiotics at home therefore culture has low yield. CT scan does not show any obstruction or stones. Right perinephric stranding consistent with pyelonephritis Monitor for signs of sepsis DVT prophylaxis with Lovenox Continue IV fluid hydration. Consult urology.
[2018-12-05] MEDS: Meropenem 1,000 MG in NA CHLORIDE 0.9% 100 ML IV SCH (17:05)
--- NOTE | 2018-12-05 18:36 | CON ---
History Of Present Illness: This 53-year-old lady with history of deafness, diabetes type 2, hypertension, started to have right flank pain about 6 days prior to admission. She has been admitted now for about 4 days. She went to the [facility] and was diagnosed with a UTI and prescribed Cipro, but despite taking antibiotics, she had no improvement, so she came to the emergency room and she was admitted. She was diagnosed with right pyelonephritis by CT scan and history and physical exam showed the right kidney appears enlarged and edematous compared to the left. Fat stranding is seen surrounding the inferior aspect of the right kidney. Prominent 4 mm aortocaval lymph node is present. No urinary stones or obstructive uropathy. These findings were consistent with right pyelonephritis along with the clinical picture and laboratories and elevated white count. However, since been in the hospital, she had been on cephalosporins, antibiotics without much improvement in her white count. Her white count has pretty much been stable since she has been admitted. When she was admitted, it was 16.4, then it went to 15.7, then 14.0 and then 15.1 today, so I was consulted. Allergies: PENICILLIN, UNKNOWN. SULFA, UNKNOWN. Medications: Reviewed in the chart. Past Surgical History: Noncontributory. Family History: Noncontributory. Social History: Everyday smoker. Review of Systems: A 10-point review of systems otherwise negative. Physical Examination: Vital Signs: Afebrile, stable. HEENT: Atraumatic and normocephalic. Neck: Supple. Respiratory: Clear. Cardiovascular: S1, S2. Gastrointestinal: Normal bowel sounds. Musculoskeletal: No tenderness. Skin: No rashes. Neurological: Alert and oriented. Laboratory Studies: Recent white count was 15.1, first it was 16.4 on admission. H and H are 10.9 and 32, platelet count 459. CT scan as mentioned above. Assessment: Acute right pyelonephritis. Plan is to switch her to meropenem IV and see how she responds. She may have an ESBL. The patient also has history of diabetes mellitus and hypertension, she will be treated medically for those. She has no stones or any obstructive uropathy that needs any further intervention. Her urine culture did not grow anything due to the fact that I think that she was on oral antibiotic, so we will treat her empirically and see how she does. Thank you very much. ROYAL/DICK Voice ID: [id number] Report ID: [id number] HALI
[2018-12-05] MEDS: ATORVASTATIN 40 MG TAB PO SCH (21:12)
[2018-12-06] MEDS: Meropenem 1,000 MG in NA CHLORIDE 0.9% 100 ML IV SCH ×3 (01:31→16:11)
[2018-12-06] MEDS: NA CHLORIDE 0.9% 1,000 ML IV SCH ×2 (04:19→16:16)
[2018-12-06 05:24] LABS: BUN Blood Urea Nitrogen 9 mg/dL (7-18); Bicarbonate 26 mmol/L (21-32); Glucose Level 113 mg/dL (74-106); Magnesium 2.2 mg/dL (1.8-2.4); Potassium 3.9 mmol/L (3.5-5.1); Sodium Level 145 mmol/L (136-145)
[2018-12-06] MEDS: INSULIN -REGULAR HUMAN 50 UNIT/0.5 ML ML SQ SCH ×4 (07:30→20:57)
[2018-12-06 08:07] LABS: Absolute Lymphocytes (CBC) 3.6 K/uL (0.7-4.9); Absolute Monocytes 0.9 K/uL (0.1-1.3); Basophils % 0.9 % (0-1.3); Eosinophils % 1.1 % (0-4.4); Hematocrit 33.7 % (36.0-45.0); Lymphocytes % 26.2 % (15.3-44.8); MPV 8.8 fL (7.6-11.3); Monocytes % 6.4 % (3.3-12.3); RBC Red Blood Cell Count 3.72 M/uL (3.86-4.86)
[2018-12-06] MEDS: glipiZIDE 5 MG TAB PO SCH ×2 (08:40→16:11)
[2018-12-06] MEDS: LISINOPRIL 5 MG TAB PO SCH (08:40)
[2018-12-06] MEDS ORDERED: POTASSIUM 25 MEQ EFFERV TAB PO ONE (09:00)
--- NOTE | 2018-12-06 13:37 | PN ---
Subjective: The patient feels much better today than yesterday since she began on meropenem. White count is starting to decrease, is now 13,700 down from 15,100 yesterday. Assessment: Acute pyelonephritis. Plan: Plan is to do a PICC line placement. Do IV meropenem at home for another 14 days. ROYAL/DICK Voice ID: [id number] Report ID: [id number]
--- NOTE | 2018-12-06 18:47 | P.PN ---
Subjective Date of Service: 12/06/18 Chief Complaint: acute pyelonephritis Subjective: No C/O voiced, Improving Patient seen and examined at bedside. No family at bedside. Chart reviewed and case discussed with nursing staff. Reports feeling great, flank pain has almost resolved completely. No acute events noted overnight and no complaints noted this morning. Review of Systems 10-point ROS is otherwise unremarkable Physical Examination - Vital Signs Temperature: 97.8 F Blood Pressure: 132/68 Pulse: 78 Respirations: 18 Pulse Ox (%): 97 - Physical Exam General: Alert, In no apparent distress, Oriented x3 HEENT: Atraumatic, PERRLA, EOMI Neck: Supple, JVD not distended Respiratory: Clear to auscultation bilaterally, Normal air movement Cardiovascular: Regular rate/rhythm, Normal S1 S2 Gastrointestinal: Normal bowel sounds, No tenderness Musculoskeletal: No tenderness Integumentary: No rashes Neurological: Normal speech, Normal tone, Normal affect Lymphatics: No axilla or inguinal lymphadenopathy - Studies Medications List Reviewed: Yes Assessment And Plan - Plan Assessment And Plan - Current Problems (Diagnosis) (1) Acute pyelonephritis Current Visit: Yes Status: Acute (2) Diabetes mellitus Current Visit: Yes Status: Acute Qualifiers: Diabetes mellitus type: type 2 Diabetes mellitus skilled nursing insulin use: without intermodal owner operator truck driver use Diabetes mellitus complication status: with hyperglycemia Qualified Code(s): E11.65 - Type 2 diabetes mellitus with hyperglycemia (3) HTN (hypertension) Current Visit: Yes Status: Acute Qualifiers: Hypertension type: essential hypertension Qualified Code(s): I10 - Essential (primary) hypertension (4) Leukocytosis Current Visit: Yes Status: Acute Qualifiers: Leukocytosis type: other Qualified Code(s): D72.828 - Other elevated white blood cell count (5) Nicotine dependence with current use Current Visit: Yes Status: Acute - Plan white blood cell count improved after meropenem. The patient has flank tenderness has resolved. Continue meropenem and follow up on cultures. Negative to date. Patient was on antibiotics at home therefore culture has low yield. CT scan does not show any obstruction or stones. Right perinephric stranding consistent with pyelonephritis Monitor for signs of sepsis Continue IV fluid hydration. Consult urology, recommendations appreciated. DVT prophylaxis: Lovenox GI prophylaxis: None Diet: Diabetic Disposition: Pending PICC line placement at home IV antibiotics set up. Social work on board. Possible discharge home in the next 24-48 hr with IV antibiotics set up at home.
[2018-12-06] MEDS: ATORVASTATIN 40 MG TAB PO SCH (20:17)
[2018-12-07] MEDS: Meropenem 1,000 MG in NA CHLORIDE 0.9% 100 ML IV SCH ×3 (00:24→16:35)
[2018-12-07] MEDS: ACETAMINOPHEN 500 MG TAB PO PRN (04:03)
[2018-12-07] MEDS: NA CHLORIDE 0.9% 1,000 ML IV SCH ×3 (05:33→21:33)
[2018-12-07 06:26] LABS: BUN Blood Urea Nitrogen 13 mg/dL (7-18); Bicarbonate 24 mmol/L (21-32); Glucose Level 145 mg/dL (74-106); Potassium 3.9 mmol/L (3.5-5.1); Sodium Level 143 mmol/L (136-145)
[2018-12-07] MEDS: INSULIN -REGULAR HUMAN 50 UNIT/0.5 ML ML SQ SCH ×4 (07:30→21:00)
[2018-12-07] MEDS: LISINOPRIL 5 MG TAB PO SCH (08:55)
[2018-12-07] MEDS: glipiZIDE 5 MG TAB PO SCH ×2 (08:55→16:36)
[2018-12-07] MEDS ORDERED: POTASSIUM 25 MEQ EFFERV TAB PO ONE (09:00)
--- NOTE | 2018-12-07 15:41 | P.PN ---
Subjective Date of Service: 12/07/18 Chief Complaint: acute pyelonephritis Patient seen and examined at bedside. No family at bedside. Chart reviewed and case discussed with nursing staff. Reports feeling great, flank pain has resolved completely. No acute events noted overnight and no complaints noted this morning. Ambulating without concerns Review of Systems 10-point ROS is otherwise unremarkable Physical Examination - Vital Signs Temperature: 97.0 F Blood Pressure: 134/56 Pulse: 77 Respirations: 18 Pulse Ox (%): 96 - Physical Exam General: Alert, In no apparent distress, Oriented x3 HEENT: Atraumatic, PERRLA, EOMI Neck: Supple, JVD not distended Respiratory: Clear to auscultation bilaterally, Normal air movement Cardiovascular: Regular rate/rhythm, Normal S1 S2 Gastrointestinal: Normal bowel sounds, No tenderness Musculoskeletal: No tenderness Integumentary: No rashes Neurological: Normal speech, Normal tone, Normal affect Lymphatics: No axilla or inguinal lymphadenopathy - Studies Microbiology Data (last 24 hrs): 12/01/18 21:25 Blood - Blood Aerobic Blood Culture - Final No growth in 5 days. 12/01/18 21:25 Blood - Blood Anaerobic Blood Culture - Final No growth in 5 days. 12/01/18 21:10 Blood - Blood Aerobic Blood Culture - Final No growth in 5 days. 12/01/18 21:10 Blood - Blood Anaerobic Blood Culture - Final No growth in 5 days. Medications List Reviewed: Yes Assessment And Plan - Plan - Current Problems (Diagnosis) (1) Acute pyelonephritis Current Visit: Yes Status: Acute (2) Diabetes mellitus Current Visit: Yes Status: Acute Qualifiers: Diabetes mellitus type: type 2 Diabetes mellitus prison insulin use: without prison use Diabetes mellitus complication status: with hyperglycemia Qualified Code(s): E11.65 - Type 2 diabetes mellitus with hyperglycemia (3) HTN (hypertension) Current Visit: Yes Status: Acute Qualifiers: Hypertension type: essential hypertension Qualified Code(s): I10 - Essential (primary) hypertension (4) Leukocytosis Current Visit: Yes Status: Acute Qualifiers: Leukocytosis type: other Qualified Code(s): D72.828 - Other elevated white blood cell count (5) Nicotine dependence with current use Current Visit: Yes Status: Acute - Plan white blood cell count continues to improve after meropenem. The patient has flank tenderness has resolved. Continue meropenem and follow up on cultures. Negative to date. Patient was on antibiotics at home therefore culture has low yield. CT scan does not show any obstruction or stones. Right perinephric stranding consistent with pyelonephritis Monitor for signs of sepsis Continue IV fluid hydration. Consult urology, recommendations appreciated. DVT prophylaxis: Lovenox GI prophylaxis: None Diet: Diabetic Disposition: Pending PICC line placement and home IV antibiotics set up. Social work on board. Discharge home in once set up.
[2018-12-07] MEDS: ATORVASTATIN 40 MG TAB PO SCH (21:33)
[2018-12-08] MEDS: Meropenem 1,000 MG in NA CHLORIDE 0.9% 100 ML IV SCH ×2 (00:06→08:17)
[2018-12-08] MEDS: HYDROCODONE/APAP 7.5/325 MG TAB PO PRN (01:10)
[2018-12-08 05:46] LABS: BUN Blood Urea Nitrogen 12 mg/dL (7-18); Bicarbonate 27 mmol/L (21-32); Glucose Level 116 mg/dL (74-106); Potassium 4.1 mmol/L (3.5-5.1); Sodium Level 144 mmol/L (136-145)
[2018-12-08] MEDS: INSULIN -REGULAR HUMAN 50 UNIT/0.5 ML ML SQ SCH ×2 (07:30→11:30)
[2018-12-08] MEDS: LISINOPRIL 5 MG TAB PO SCH (08:18)
[2018-12-08] MEDS: glipiZIDE 5 MG TAB PO SCH (08:18)
[2018-12-08] MEDS: NA CHLORIDE 0.9% 1,000 ML IV SCH (08:18)
--- NOTE | 2018-12-08 10:47 | RAD REPORT ---
EXAM DESCRIPTION: RAD - Chest Single View - 12/08/2018 12:12 am CLINICAL HISTORY: 53 years Female PICC placement COMPARISON: None TECHNIQUE: AP view of the chest was obtained. FINDINGS: Right peripheral catheter is present with the tip seen at the atrial caval junction. No pn eumothorax. Cardiac silhouette is mildly enlarged. Central vessels are prominent. No infiltrates or effusions seen. No consolidation. IMPRESSION: Satisfactory right peripheral catheter placement. Tip seen at atrial caval junction. No pneumothorax. No active disease. Electronically signed by: Myrtle Basilio MD 12/08/2018 12:25 AM CDT Due to temporary technical issues with the PACS/Fluency reporting system, reports are being signed by the in house radiologist as a courtesy to ensure prompt reporting. The interpreting radiologist is f ully responsible for the content of the report.
--- NOTE | 2018-12-08 11:14 | P.DS ---
Admission Date: 12/01/18 Discharge Date: 12/08/18 Disposition: DC HOME/HOME HEALTH CARE Discharge Condition: GOOD Reason for Admission: acute pyelonephritis Consultations: Urology Procedures: PICC line placement: 12/07/2018 Brief History of Present Illness: Ms Valentine is a 53 years old woman with history of DM II, HTN, deafness, who start with right flank pain about about 6 days ago. She went to [facility] and was diagnosed with UTI. She was prescribed Cipro. Despite to take the antibiotics, her flank pain continue without improvement. She denied fever or chills, no nausea or vomiting. In ER she was afebrile, tachycardic 100 bpm, lab work shows leukocytosis 16.4K, UA abnormal, CT abd/pelvis consistent with right pyelonephritis. Hospital Course: For acute pyelonephritis, failed outpatient oral antibiotic treatment. She had leukocytosis on admission, which fluctuated and trended up even on antibiotics. Urology was consulted. Antibiotics were adjusted and she was started on meropenem. Cultures remained negative throughout the stay but patient was on antibiotics at home prior to arrival therefore culture has low yield. She did not have any evidence of sepsis throughout the stay. It was recommended that patient be on antibiotics for 2 weeks. A PICC line was placed, home IV antibiotics set up. Patient was taught on giving IV antibiotics. Her discharge was delayed due to set up of IV antibiotic and no PICC line nurse available to place PICC line. Prior to discharge, she was alert oriented x3, labs were stable and she is hemodynamically stable. Her symptoms of flank pain had resolved. She had no urinary complaints prior to discharge. Her treatment plan and diagnoses were explained to her. All questions were answered and patient verbalized understanding. She was discharged home in a safe and stable manner. She will follow up with Dr. Mosley in 2 weeks. Vital Signs/Physical Exam: Temp Pulse Resp BP Pulse Ox 98.1 F 82 18 122/63 98 12/08/18 08:00 12/08/18 08:18 12/08/18 08:00 12/08/18 08:18 12/08/18 08:00 General: Alert, In no apparent distress, Oriented x3 HEENT: Atraumatic, PERRLA, EOMI Neck: Supple, JVD not distended Respiratory: Clear to auscultation bilaterally, Normal air movement Cardiovascular: Regular rate/rhythm, Normal S1 S2 Gastrointestinal: Normal bowel sounds, No tenderness Musculoskeletal: No tenderness Integumentary: No rashes Neurological: Normal speech, Normal tone, Normal affect Lymphatics: No axilla or inguinal lymphadenopathy Laboratory Data at Discharge: WBC 13.7 K/uL (4.3-10.9) H 12/06/18 07:16 Hgb 11.4 g/dL (12.0-15.0) L 12/06/18 07:16 Hct 33.7 % (36.0-45.0) L 12/06/18 07:16 Plt Count 524 K/uL (152-406) H 12/06/18 07:16 Sodium 144 mmol/L (136-145) 12/08/18 05:20 Potassium 4.1 mmol/L (3.5-5.1) 12/08/18 05:20 BUN 12 mg/dL (7-18) 12/08/18 05:20 Creatinine 0.53 mg/dL (0.55-1.3) L 12/08/18 05:20 Glucose 116 mg/dL (74-106) H 12/08/18 05:20 Magnesium 2.2 mg/dL (1.8-2.4) 12/06/18 04:10 Home Medications: Atorvastatin Calcium [Lipitor] 40 mg PO BEDTIME 12/02/18 Dicyclomine HCl 1 cap PO TID PRN 12/02/18 Glipizide [Glucotrol] 5 mg PO BID 12/02/18 Lisinopril [Prinivil*] 5 mg PO DAILY 12/02/18 Metformin ER [Glucophage ER*] 1 tab PO BID 12/02/18 Ondansetron [Zofran (Odt)*] 2 tab PO Q8H PRN 12/02/18 Patient Discharge Instructions: Please follow up with the primary care physician in 2-3 days. Please follow up with Dr. Mosley in 2 weeks. Please return to the emergency room for worsening symptoms Diet: ADA Activity: Ad anita Time spent managing pt's care (in minutes): 55
[2018-12-08] MEDS: ACETAMINOPHEN 500 MG TAB PO PRN (12:10)
--- NOTE | 2018-12-08 16:15 | PN ---
Subjective: A 53-year-old lady with diabetes type 2, hypertension, deafness, acute right pyelonephritis, was resistant to outpatient antibiotics. Also, resistant to some inpatient IV antibiotics and was switched to meropenem. I believe she has an ESBL bug that never grew because she was on antibiotics when she was cultured. However, she had a PICC line placed on the right. She can go with 14 more days of meropenem t.i.d. She will be given herself independently with her family members at home for 14 days and follow up urine culture after followup PICC line removal. ROYAL/DICK Voice ID: [id number] Report ID: [id number] HALI
== END 2018-12-08 12:25 | disposition home health service (06) | DRG 690 ==
LOC: ER 19:50 → ERHOLD 23:27 → 4TH 12-02 01:20
PROVIDERS: ADMIT Internal Medicine; ATTEND Internal Medicine
PROC: 02HV33Z Insertion of Infusion Device into Superior Vena Cava, Percutaneous Approach (ICD-10-PCS; principal; 2018-12-07)
DX: N10 Acute pyelonephritis (principal); E11.9 Type 2 diabetes mellitus without complications; I10 Essential (primary) hypertension; H91.90 Unspecified hearing loss, unspecified ear; F17.210 Nicotine dependence, cigarettes, uncomplicated; Z88.0 Allergy status to penicillin; Z88.2 Allergy status to sulfonamides
CPT/HCPCS: 36415; 71045; 74176; 76377; 80048; 81003; 81015; 82962; 83605; 83735; 85025; 87040; 87086; 87088; 96361; 96365; 96372; 99285; J0744; J3010; J7030

== ENCOUNTER 2021-09-11 19:37 | Emergency (ER) | payer OTHER ==
--- OUTSIDE RECORDS SUMMARY | 2021-09-11 19:39 | XMS REPORT | Continuity of Care Document ---
:1965 Author Organization [facility] t Address [address] [place] [address] [address]. Contre[address] [place] [address] Care Team Providers Name Role Phone Omar TRACY Attending Clinician Payers Payer Name Policy Type Policy Number Effective Date Expiration Date S ource Problems This patient has no known problems. Allergies, Adverse Reactions, Alerts Allergy Allergy Status Severity Reaction(s) Onset Inactive Treating Comm ents Source Name Type Date Date Clinician Penicill Propensi Active Hives Univer s ins ty to 3 ity of adverse 00:00: [place] reaction 00 Medical s Branch Sulfa Propensi Active Swelling Univer s (Sulfona ty to 3 ity of mide adverse 00:00: [place] Antibiot reaction 00 Medica l ics) s Branch Social History Social Habit Start Date Stop Date Quantity Comments Source Sex Assigned At [facility] Medical Branch Cigarettes smoked 2017-09-27 2017-09-27 [facility] current (pack per 00:00:00 00:00:00 Medical Branch day) - Reported Cigarette pack-years 2017-09-27 2017-09-27 [facility] 00:00:00 00:00:00 Medical Branch Smoking Status Start Date Stop Date Source Current every day smoker 2017-09-27 00:00:00 [facility] Medical [place] Medications Ordered Filled Start Stop Current Ordering Indication Dosage Frequency Signature Comments Components Source Medication Medication Date Date Medication? Clinician (SIG) Name Name metFORMIN Yes 1000mg Take 1,000 Univers 1,000 mg 3-26 mg by ity of tablet 18:12: mouth 2 [place] 20 (two) Medical times Branch daily with meals. metFORMIN Yes 1000mg Take 1,000 Univers 1,000 mg 3-26 mg by ity of tablet 18:12: mouth 2 [place] 20 (two) Medical times Branch daily with meals. Procedures This patient has no known procedures. Encounters Start End Encounter Admission Attending Care Care Encounter Source Date/Time Date/Time Type Type Clinicians Facility Department ID 2019-03-13 2019-03-13 MARYANN Parrish [id number] Univers 00:00:00 00:00:00 Management Kisha BALDERAS [id number] [id number] [phone] [place] [address] Branch 2019-02-21 2019-02-21 Dio Nelson [facility] [id number] Univers 00:00:00 00:00:00 Management Kisha BALDERAS [id number] [place] [id number] [phone] [place] [address] Branch Results This patient has no known results.
[2021-09-11] MEDS ORDERED: KETOROLAC 30 MG/ML INJ ONE (21:10)
[2021-09-11] MEDS ORDERED: LIDOCAINE 4% PATCH ONE (21:10)
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
[2021-09-11 22:36] VITALS: BP 151/87; TEMP 98.6; O2SAT 97
== END 2021-09-11 22:01 | disposition home or self-care (01) ==
LOC: ER 19:37
DX: R51.9 Headache, unspecified (principal); M54.50 Low back pain, unspecified; E11.9 Type 2 diabetes mellitus without complications; I10 Essential (primary) hypertension; F17.210 Nicotine dependence, cigarettes, uncomplicated; Z88.0 Allergy status to penicillin; Z88.2 Allergy status to sulfonamides
CPT/HCPCS: 96372; 99283